=== PATIENT | male | born 1980 | race Caucasian/White ===

== ENCOUNTER 2017-02-28 08:46 | Emergency (ER) | payer MEDICAID ==
[~2017-02-28] VITALS: Ht 172.7 cm; Wt 75.0 kg
[2017-02-28 08:48] VITALS: BP 139/88; PULSE 68; RESP 18; TEMP 97.7; O2SAT 100
[2017-02-28] MEDS ORDERED: SODIUM CHLOR 0.9% 1000 ML INJ 1,000 ML IV SCH (09:35)
[2017-02-28] MEDS ORDERED: KETOROLAC TROMETHAMINE 30 MG/ML (IVP) VIAL IVP ONE (09:45)
[2017-02-28] MEDS ORDERED: SODIUM CHLORIDE 0.9% FLUSH 10 ML FLUSH IV FLUSH PRN ×2 (09:45)
--- NOTE | 2017-02-28 09:51 | PD ---
HPI Chief Complaint: Flank/Kidney Pain Time Seen by Provider: 09:36 Travel History International Travel<30 days: No Contact w/Intl Traveler<30days: No Traveled to known affect area: No History of Present Illness HPI 36 years old male complains of left flank pain and nausea. Patient states that symptoms started this morning. Patient states the pain sharp pain in cramping pain localized to left flank area. Patient denies any pain radiation. Patient states that he had nausea this morning but not now. Patient denies any fever chills. Patient complains of urinary urgency and the decrease in urine output. Patient denies any history kidney stone. PFSH Past Medical History Medical History: Denies Significant Hx Past Surgical History Surgical History: No Previous Surgery Social History Alcohol Use: No Tobacco Use: Yes (ppd) Substance Use: No Allergies-Medications (Allergen,Severity, Reaction): Coded Allergies: No Known Allergies (Unverified , 02/28/17) Review of Systems General / Constitutional: No: Fever Eyes: No: Visual changes HENT: No: Headaches Cardiovascular: No: Chest Pain or Discomfort Respiratory: No: Shortness of Breath Gastrointestinal: No: Abdominal Pain Genitourinary: Positive: Decreased Urinary Output, No: Dysuria Musculoskeletal: No: Pain Skin: No Rash Neurologic: No: Weakness Psychiatric: No: Depression Endocrine: No: Polydipsia Hematologic/Lymphatic: No: Easy Bruising Physical Exam Narrative GENERAL: Well-nourished, well-developed patient. SKIN: Focused skin assessment warm/dry. HEAD: Normocephalic. EYES: No scleral icterus. No injection or drainage. NECK: Supple, trachea midline. No JVD or lymphadenopathy. CARDIOVASCULAR: Regular rate and rhythm without murmurs, gallops, or rubs. RESPIRATORY: Breath sounds equal bilaterally. No accessory muscle use. GASTROINTESTINAL: Abdomen soft, non-tender, nondistended. MUSCULOSKELETAL: No cyanosis, or edema. BACK: Nontender without obvious deformity. No CVA tenderness. Neurologic exam normal. Data Data Last Documented VS Vital Signs Date Time Temp Pulse Resp B/P (MAP) Pulse Ox O2 Delivery O2 Flow Rate FiO2 02/28/17 10:39 60 16 110/71 (84) 99 Room Air 02/28/17 08:48 97.7 Orders Orders Complete Blood Count With Diff (02/28/17 09:35) Comprehensive Metabolic Panel (02/28/17 09:35) Prothrombin Time / Inr (Pt) (02/28/17 09:35) Act Partial Throm Time (Ptt) (02/28/17 09:35) Urinalysis - C+S If Indicated (02/28/17 09:35) Iv Access Insert/Monitor (02/28/17 09:35) Sodium Chlor 0.9% 1000 Ml Inj (Ns 1000 M (02/28/17 09:35) Sodium Chloride 0.9% Flush (Ns Flush) (02/28/17 09:45) Ct Abd/Pel W/O Iv Contrast (02/28/17 09:41) Sodium Chloride 0.9% Flush (Ns Flush) (02/28/17 09:45) Ketorolac Inj (Toradol Inj) (02/28/17 09:45) Labs Laboratory Tests Test 02/28/17 09:45 02/28/17 10:56 White Blood Count 9.0 TH/MM3 Red Blood Count 4.66 MIL/MM3 Hemoglobin 14.4 GM/DL Hematocrit 42.0 % Mean Corpuscular Volume 90.0 FL Mean Corpuscular Hemoglobin 30.9 PG Mean Corpuscular Hemoglobin Concent 34.4 % Red Cell Distribution Width 14.3 % Platelet Count 374 TH/MM3 Mean Platelet Volume 8.4 FL Neutrophils (%) (Auto) 50.9 % Lymphocytes (%) (Auto) 38.8 % Monocytes (%) (Auto) 7.7 % Eosinophils (%) (Auto) 1.8 % Basophils (%) (Auto) 0.8 % Neutrophils # (Auto) 4.6 TH/MM3 Lymphocytes # (Auto) 3.5 TH/MM3 Monocytes # (Auto) 0.7 TH/MM3 Eosinophils # (Auto) 0.2 TH/MM3 Basophils # (Auto) 0.1 TH/MM3 CBC Comment DIFF FINAL Differential Comment Prothrombin Time 10.7 SEC Prothromb Time International Ratio 1.0 RATIO Activated Partial Thromboplast Time 23.7 SEC Blood Urea Nitrogen 10 MG/DL Creatinine 1.00 MG/DL Random Glucose 152 MG/DL Total Protein 7.4 GM/DL Albumin 4.5 GM/DL Calcium Level 8.9 MG/DL Alkaline Phosphatase 67 U/L Aspartate Amino Transf (AST/SGOT) 16 U/L Alanine Aminotransferase (ALT/SGPT) 32 U/L Total Bilirubin 0.5 MG/DL Sodium Level 138 MEQ/L Potassium Level 3.9 MEQ/L Chloride Level 102 MEQ/L Carbon Dioxide Level 29.4 MEQ/L Anion Gap 7 MEQ/L Estimat Glomerular Filtration Rate 85 ML/MIN Urine Color YELLOW Urine Turbidity CLEAR Urine pH 6.0 Urine Specific Gilbert 1.022 Urine Protein TRACE mg/dL Urine Glucose (UA) NEG mg/dL Urine Ketones 10 mg/dL Urine Occult Blood MOD Urine Nitrite NEG Urine Bilirubin NEG Urine Urobilinogen 2.0 MG/DL Urine Leukocyte Esterase NEG Urine RBC 38 /hpf Urine WBC 2 /hpf Urine Mucus FEW /lpf Microscopic Urinalysis Comment CULT NOT INDICATED MDM Medical Decision Making Medical Screen Exam Complete: Yes Emergency Medical Condition: Yes Interpretation(s) Last Impressions Abdomen/Pelvis CT 02/28/17 0941 Signed Impressions: Service Date/Time: Tuesday, February 28, 2017 09:59 - CONCLUSION: Negative renal colic CT. Jose Roberto Mills MD 12:20 PM. CBC within normal limit. CMP within normal limit. UA is negative. Differential Diagnosis Differential diagnosis including nephrolithiasis, musculoskeletal, pyelonephritis. Narrative Course 36 years old male with left flank pain started this morning. Toradol 30 mg IV. Normal saline solution 1 L IV bolus. Diagnosis Primary Impression: Left flank pain Patient Instructions: General Instructions Additional Instructions: Take medications as needed for pain. Follow-up with personal physician. Return if worse. Med/Other Pt SpecificInfo: Prescription(s) given Scripts Methocarbamol (Robaxin) 750 Mg Tab 750 MG PO QID for Muscle Spasm, #40 TAB 0 Refills Prov: Pako Alicia MD 02/28/17 Meloxicam (Mobic) 15 Mg Tab 15 MG PO DAILY for Pain, #14 TAB 0 Refills Prov: Pako Alicia MD 02/28/17 Disposition: 01 DISCHARGE HOME Condition: Stable Pako Alicia MD Feb 28, 2017 09:51
[2017-02-28 10:09] LABS: AUTOMATED NEUTROPHIL # 4.6 TH/MM3 (1.8-7.7); BASOPHIL # 0.1 TH/MM3 (0-0.2); BASOPHIL % 0.8 % (0.0-2.0); EOSINOPHIL # 0.2 TH/MM3 (0-0.4); EOSINOPHIL % 1.8 % (0.0-4.0); HEMO FLAGS DIFF FINAL; LYMPH % 38.8 % (9.0-44.0); LYMPHOCYTE # 3.5 TH/MM3 (1.0-4.8); MEAN CORPUSCULAR HEMOGLOBIN 30.9 PG (27.0-34.0); MEAN CORPUSCULAR HGB CONC 34.4 % (32.0-36.0); MONO % 7.7 % (0.0-8.0); NEUT % 50.9 % (16.0-70.0); PLATELET COUNT 374 TH/MM3 (150-450); RED BLOOD COUNT 4.66 MIL/MM3 (4.50-5.90); RED CELL DISTRIBUTION WIDTH 14.3 % (11.6-17.2)
[2017-02-28 10:23] LABS: APTT (PATIENT) 23.7 SEC (24.3-30.1); PROTHROMBIN TIME - PATIENT 10.7 SEC (9.8-11.6)
[2017-02-28 10:36] LABS: ANION GAP 7 MEQ/L (5-15); AST (GOT) 16 U/L (15-37); BICARBONATE 29.4 MEQ/L (21.0-32.0); BLOOD UREA NITROGEN 10 MG/DL (7-18); CHLORIDE 102 MEQ/L (98-107); GLOMERULAR FILTRATION RATE 85 ML/MIN (>89); POTASSIUM 3.9 MEQ/L (3.5-5.1); SODIUM (NA) 138 MEQ/L (136-145)
[2017-02-28 10:37] LABS: ALT (GPT) 32 U/L (12-78)
--- NOTE | 2017-02-28 10:37 | RADRPT ---
EXAM DATE/TIME: 02/28/2017 09:59 [facility] COMPARISON: No previous studies available for comparison. INDICATIONS : Left flank pain. ORAL CONTRAST: No oral contrast ingested. RADIATION DOSE: 5.79 CTDIvol (mGy) MEDICAL HISTORY : None SURGICAL HISTORY : None. ENCOUNTER: Initial ACUITY: 1 day PAIN SCALE: 10/10 LOCATION: Left flank TECHNIQUE: Renal colic protocol. Volumetric scanning of the abdomen and pelvis was performed. Using automated exposure control and adjustment of the mA and/or kV according to patient size, radiation dose was kep t as low as reasonably achievable to obtain optimal diagnostic quality images. DICOM format image da ta is available electronically for review and comparison. FINDINGS: LOWER LUNGS: The visualized lower lungs are clear. LIVER: No focal abnormalities in the visualized portion of the liver for noncontrast technique. There is no dilation of the biliary tree. No calcified gallstones. SPLEEN: Normal size without lesion. PANCREAS: Within normal limits. KIDNEYS: Normal in size and shape. There is no mass, stone, or hydronephrosis. No calcified stones along cou rse of either ureter. ADRENAL GLANDS: Within normal limits. VASCULAR: There is no aortic aneurysm. BOWEL/MESENTERY: No dilated loops of small large bowel. The appendix is identified in the right lower quadrant has a normal appearance. No evidence of free fluid. ABDOMINAL WALL: Within normal limits. RETROPERITONEUM: There is no lymphadenopathy. BLADDER: No wall thickening or mass. REPRODUCTIVE: Within normal limits. INGUINAL: There is no lymphadenopathy or hernia. MUSCULOSKELETAL: Within normal limits for patient age. CONCLUSION: Negative renal colic CT. Jose Roberto Mills MD on February 28, 2017 at 10:33 Board Certified Radiologist. This report was verified electronically.
[2017-02-28 10:39] VITALS: BP 110/71; PULSE 60; RESP 16; O2SAT 99
[2017-02-28 10:39] LABS: ALKALINE PHOSPHATASE 67 U/L (45-117); TOTAL BILIRUBIN ADULT 0.5 MG/DL (0.2-1.0)
[2017-02-28 11:34] LABS: BLOOD, URINE MOD (NEG); COMMENT (UR) CULT NOT INDICATED; CULTURE IF INDICATED CULT NOT INDICATED; GLUCOSE,URINE NEG (NEG); KETONE, URINE 10 mg/dL (NEG); MUCUS URINE FEW /lpf (OCC); NITRITE,URINE NEG (NEG); URINE COLOR YELLOW (YELLW/STRAW)
[2017-02-28] MEDS ORDERED: ROBA750T PO (12:24)
[2017-02-28] MEDS ORDERED: MOBI15TA PO (12:24)
== END 2017-02-28 12:45 | disposition home or self-care (01) ==
LOC: NEPE 08:46
DX: R10.9 Unspecified abdominal pain (principal); R39.15 Urgency of urination; Z72.0 Tobacco use
CPT/HCPCS: 74176; 80053; 81001; 85025; 85610; 85730; 96361; 96374; 99285; J1885; J7030